=== PATIENT | male | born 1970 | race Caucasian/White ===

== ENCOUNTER 2017-04-22 14:20 | Inpatient (IN) | payer MEDICAID ==
[~2017-04-22] VITALS: Ht 172.7 cm; Wt 58.5 kg
--- NOTE | 2017-04-22 14:31 | NUR ---
NON-RADIATING CHEST PAIN, SOB x 2 DAYS. GOWNED PT. PLACED ON MONITOR. AWAITING MD ORDER .
--- NOTE | 2017-04-22 14:35 | NUR ---
DR VIVAR AT BEDSIDE FOR EVAL
--- NOTE | 2017-04-22 14:47 | NUR ---
WAD LUBRICATOR AT BEDSIDE.
[2017-04-22 14:53] LABS: BASOPHILS # (AUTO) 0.1 /CMM (0.0-0.2); BASOPHILS % (AUTO) 0.6 % (0.0-2.0); EOSINOPHILS # (AUTO) 0.3 /CMM (0.0-0.7); EOSINOPHILS % (AUTO) 2.2 % (0.0-6.0); HEMATOCRIT 44 % (39-51); HEMOGLOBIN 14.8 g/dL (13.5-17.5); LYMPHOCYTES % (AUTO) 22.6 % (20.0-44.0); MEAN CORPUSCULAR HEMOGLOBIN 30 PG (26.0-33.0); MEAN CORPUSCULAR HGB CONC 34 g/dl (31.0-36.0); MEAN CORPUSCULAR VOLUME 90 fL (80-96); MONOCYTES # (AUTO) 0.8 /CMM (0.1-1.30); MONOCYTES % (AUTO) 5.8 % (2.0-12.0); NEUTROPHILS # (AUTO) 9.1 /CMM (1.8-8.9); NEUTROPHILS % (AUTO) 68.8 % (43.0-81.0); PLATELET COUNT (AUTO) 339 /CMM (150-450); RDW COEFFICIENT OF VARIATION 14.2 (11.5-15.0); RED BLOOD CELL COUNT(AUTO) 4.89 MIL/uL (4.5-6.0); WHITE BLOOD COUNT (AUTO) 13.3 K/uL (4.3-11.0)
[2017-04-22 15:02] LABS: CALCIUM, SERUM 8.7 mg/dL (8.5-10.1); CARBON DIOXIDE 29 mmol/L (21-32); CHLORIDE 106 mmol/L (98-107); CREATININE 0.8 mg/dL (0.6-1.3); GLUCOSE 92 mg/dL (74-106); POTASSIUM 4.3 mmol/L (3.5-5.1); SODIUM SERUM 141 mmol/L (136-145); UREA NITROGEN, BLOOD 14 mg/dL (7-18)
[2017-04-22 15:10] LABS: TROPONIN I < 0.017 ng/mL (0.00-0.056)
[2017-04-22 15:15] LABS: B-TYPE NATRIURETIC PEPTIDE 58 PG/ML (0-125)
[2017-04-22 15:26] LABS: PROTHROMBIN TIME 10.7 SECS (9.5-12.7)
[2017-04-22] MEDS ORDERED: NITROGLYCERIN PACKET 1 GM PACKET ONE (15:26)
[2017-04-22] MEDS ORDERED: ASPIRIN 325 MG TABLET ONE (15:26)
--- NOTE | 2017-04-22 15:27 | NUR ---
CALLED RT FOR BREATHING TX
[2017-04-22] MEDS ORDERED: NITROGLYCERIN PACKET 1 GM PACKET TOP ONE (15:30)
[2017-04-22] MEDS ORDERED: ALBUTEROL FS 2.5 MG/0.5 ML VIAL.NEB NEB ONE (15:30)
[2017-04-22] MEDS ORDERED: ASPIRIN 325 MG TABLET PO ONE (15:30)
[2017-04-22] MEDS ORDERED: ALBUTEROL FS 2.5 MG/0.5 ML VIAL.NEB ONE (15:31)
--- NOTE | 2017-04-22 15:53 | NUR ---
GAVE REPORT TO KELSI ORLANDO TELE CHEST PAIN DR GOLD ADMITTING
[2017-04-22 16:00] VITALS: BP 116/71
[2017-04-22] MEDS ORDERED: ZOLPIDEM TARTRATE 5 MG TABLET PO PRN (16:00)
[2017-04-22] MEDS ORDERED: MAGNESIUM HYDROXIDE 30 ML UDC PO PRN (16:00)
[2017-04-22] MEDS ORDERED: HYDROCODONE/APAP 5/325MG 1 EACH TABLET PO PRN (16:00)
[2017-04-22] MEDS ORDERED: MAG HYDROX/AL HYDROX/SIMETH 30 ML UDC PO PRN (16:00)
[2017-04-22] MEDS ORDERED: ONDANSETRON HCL/PF 4 MG/2 ML VIAL IVP PRN (16:00)
[2017-04-22] MEDS ORDERED: Z GUARD REMEDY 2 OZ OINT TP PRN (16:00)
[2017-04-22] MEDS ORDERED: ACETAMINOPHEN 325 MG TABLET PO PRN (16:00)
[2017-04-22 16:15] VITALS: BP 116/71
--- NOTE | 2017-04-22 16:40 | NUR ---
RECEIVED PT FROM THE ER WITH SISTER AT BEDSIDE. PT ON O2 VIA NASAL CANNULA AT 2L, SATING 99%. NO COMPLAINTS OF PAIN OR PRESSURE AT THIS TIME. PT STATES HE HAS "CHEST PRESSURE" BUT DOES NOT FEEL THAT THE NITRO HELPED. IV ON LAC #20, INTACT AND PATENT, SL. SAFETY MEASURES ARE IN PLACE, CALL LIGHT IS IN REACH. WILL CONTINUE TO MONITOR.
[2017-04-22] MEDS ORDERED: NITROGLYCERIN PACKET 1 GM PACKET TOP SCH (17:00)
--- NOTE | 2017-04-22 18:40 | NUR ---
RN NOTES PT IN BED, RESTING COMFORTABLY WITH SISTER AT BEDSIDE. PT ON O2 VIA NASAL CANNULA AT 2L, NO SOB, SATING 98%. IV ON LAC, INTACT AND PATENT, SL. TELEMETRY LEADS ARE ON, SHOWS SR 79. SAFETY MEASURES IN PLACE, CALL LIGHT IS IN REACH. WILL ENDORSE TO LISW RN FOR CONTINUITY OF CARE.
--- NOTE | 2017-04-22 19:30 | NUR ---
rn initial notes: received report from marimar forrest, pt in bed, awake, a/o x4, on 2l via nc, respiration even and unlabored, pt family at bed side, her sister rachel help with translation as pt cannot speak dominican, swedish speaking only, pt stated he still have "pressure felt in his chest area, stated its not pain but pressure and it stays there and doesnt radiate to other parts of his body", as translated by her sister rachel. pt has rcw nitrobid patch. pt on tele monitoring currently on sinus rhythm hr 70, safety precautions for fall initiated call light in reach, will continue to monitor.
[2017-04-22 20:00] VITALS: BP 112/66
--- NOTE | 2017-04-22 20:00 | NUR ---
rn notes: talked to pt's sister rachel, she stated if its possible to request abdominal x ray or abdominal ultrasound as pt been c/o of ongoing abdominal pain for couple of months now, she stated since pt is already in the hospital if possible to check the size or any abnormality in his gallbladder kidney or spleen area, to know as to why her brother was having this pain. pt abdomen is soft upon palpation with active bowel sound heard upon auscultation. also she stated pt having dizziness, offered zofran but he refused and stated he wants to know the reason why before getting medication. explain to the pt about side effects of nitrobid patch, and also the importance of zofran but pt refused. education provided. rachel-pt's sister can be reach at [phone]
[2017-04-22] MEDS ORDERED: ENOXAPARIN SODIUM 40 MG/0.4 ML DISP.SYRIN SQ SCH (21:00)
--- NOTE | 2017-04-22 21:00 | NUR ---
rn notes: offered medication to help alleviate the pressure like pain but pt refused, stated its only pressure and not really pain, so he doesnt want anything for now, educate pt regarding compliance with medication, pt's sister at bed side translated everything for the pt.
[2017-04-23] VITALS: BP_SYST 109; BP_SYST 117; BP_DIAS 54; BP_DIAS 73
--- NOTE | 2017-04-23 00:31 | NUR ---
rn notes: report given to nola forrest for continuity of care , pt sleeping, vs stable, no sob noted,
--- NOTE | 2017-04-23 00:34 | NUR ---
PERSONAL COUNSELOR NOTES RECEIVED PT FROM JOHANNY ESQUIVEL. PT IS ASLEEP AT THIS TIME, AROUSES EASILY, A/O X 4 [place] SPEAKING. NO DISTRESS, NO SOB NOTED. NO C/O PAIN OR DISCOMFORT AT THIS TIME. IV SITE ON LFA INTACT AND PATENT, NO S/S OF INFILTRATION NOTED. NEEDS ATTENDED. SAFETY PRECAUTIONS OBSERVED. CALL LIGHT WITHIN REACH. WILL CONT TO MONITOR.
[2017-04-23 04:00] VITALS: BP 110/60
--- NOTE | 2017-04-23 06:53 | NUR ---
TITLE ONE KINDERGARTEN TEACHER NOTES PT IS RESTING COMFORTABLY, AROUSES EASILY, A/O X 4 [place] SPEAKING. NO DISTRESS, NO SOB NOTED. NO C/O PAIN OR DISCOMFORT AT THIS TIME. DENIES ANY CHEST PAIN AT THIS TIME. IV SITE ON LFA INTACT AND PATENT, NO S/S OF INFILTRATION NOTED. NEEDS ATTENDED. SAFETY PRECAUTIONS OBSERVED. CALL LIGHT WITHIN REACH. WILL ENDORSE TO NEXT SHIFT FOR BRIDGER.
[2017-04-23 07:07] LABS: BASOPHILS # (AUTO) 0.1 /CMM (0.0-0.2); BASOPHILS % (AUTO) 0.7 % (0.0-2.0); EOSINOPHILS # (AUTO) 0.4 /CMM (0.0-0.7); EOSINOPHILS % (AUTO) 3.5 % (0.0-6.0); HEMATOCRIT 39 % (39-51); HEMOGLOBIN 13.4 g/dL (13.5-17.5); LYMPHOCYTES # (AUTO) 3.8 /CMM (0.8-4.8); LYMPHOCYTES % (AUTO) 32.9 % (20.0-44.0); MEAN CORPUSCULAR HEMOGLOBIN 31 PG (26.0-33.0); MEAN CORPUSCULAR HGB CONC 34 g/dl (31.0-36.0); MEAN CORPUSCULAR VOLUME 91 fL (80-96); MONOCYTES # (AUTO) 0.9 /CMM (0.1-1.30); MONOCYTES % (AUTO) 7.4 % (2.0-12.0); NEUTROPHILS # (AUTO) 6.4 /CMM (1.8-8.9); NEUTROPHILS % (AUTO) 55.5 % (43.0-81.0); PLATELET COUNT (AUTO) 328 /CMM (150-450); RED BLOOD CELL COUNT(AUTO) 4.29 MIL/uL (4.5-6.0); WHITE BLOOD COUNT (AUTO) 11.5 K/uL (4.3-11.0)
[2017-04-23 07:29] LABS: CALCIUM, SERUM 8.2 mg/dL (8.5-10.1); CREATININE 0.8 mg/dL (0.6-1.3); MAGNESIUM 1.8 mg/dL (1.8-2.4); PHOSPHORUS 4.2 mg/dL (2.5-4.9)
[2017-04-23] MEDS ORDERED: PANTOPRAZOLE 40 MG TABLET.DR PO SCH (07:30)
[2017-04-23 08:00] VITALS: BP 105/64
--- NOTE | 2017-04-23 08:01 | NUR ---
MED SURGE RN: INITIAL NOTE RECEIVED PT ALERT/O X4. NO DISTRESS NOTED. NO PAIN NOTED. SATING AT 99% WITH 2L NC. D/C TELE. L FOREARM IV. NO FLUIDS RUNNING. SITE CLEAR AND PATENT. NO N/V NOTED. RESTING COMFORTABLY IN BED. CALL LIGHT WITHIN REACH.
[2017-04-23 08:41] VITALS: BP 106/60
[2017-04-23] MEDS ORDERED: CARVEDILOL 3.125 MG TABLET PO SCH (09:00)
[2017-04-23] MEDS ORDERED: ASPIRIN 325 MG TABLET PO SCH (09:00)
[2017-04-23] MEDS ORDERED: ATORVASTATIN 10 MG TABLET PO SCH (09:00)
--- NOTE | 2017-04-23 13:28 | NUR ---
DISCHARGE PT HOME WITH STABLE V/S VIA PRIVATE CAR ACCOMPANIED BY HIS NEPHEW.DISCHARGE INSTRUCTIONS AND PT TEACHING GIVEN TO F/U WITH PMD AND DO CARDIAC STRESS TEST OUTPT.
== END 2017-04-23 13:28 | disposition home or self-care (01) | DRG 203 ==
LOC: ER 14:22 → TELE 15:50 → MED 04-23 07:54
PROVIDERS: ADMIT Internal Medicine; ATTEND Internal Medicine
DX: M94.0 Chondrocostal junction syndrome [Tietze] (principal); R65.10 Systemic inflammatory response syndrome (SIRS) of non-infectious origin without acute organ dysfunction; J44.9 Chronic obstructive pulmonary disease, unspecified; F17.210 Nicotine dependence, cigarettes, uncomplicated; D72.829 Elevated white blood cell count, unspecified; Z71.6 Tobacco abuse counseling
CPT/HCPCS: 36415; 71010-TC; 80048-TC; 80061-TC; 83735-TC; 83880; 84100-TC; 84484-TC; 85025-TC; 85730-TC; 87081-TC; 93307-TC; A4606; J1650; Z7610